=== PATIENT | male | born 1985 | race African-American/Black ===

== ENCOUNTER 2020-01-29 12:22 | Emergency (ER) | payer OTHER ==
[~2020-01-29] VITALS: Ht 190.5 cm; Wt 135.1 kg
[2020-01-29 12:23] VITALS: BP 126/99
[2020-01-29] MEDS ORDERED: CYCL-707 PO (12:32)
[2020-01-29] MEDS ORDERED: NORC1TAB7 PO (13:15)
[2020-01-29] MEDS ORDERED: NORCO, ANEXSIA 5/325MG TABLET (HYDROcodone/ACETAMINOPHEN) PO ONE (13:15)
== END 2020-01-29 13:29 | disposition home or self-care (01) ==
LOC: M ED 12:22
DX: S61.207A Unspecified open wound of left little finger without damage to nail, initial encounter (principal); W25.XXXA Contact with sharp glass, initial encounter; Y92.018 Other place in single-family (private) house as the place of occurrence of the external cause; F17.210 Nicotine dependence, cigarettes, uncomplicated

== ENCOUNTER 2021-01-08 14:40 | Emergency (ER) | payer OTHER ==
[~2021-01-08] VITALS: Ht 188 cm; Wt 131.3 kg
[~2021-01-08 14:40] MED LIST: BACL10TA2 PO; CYCL-707 PO; METH-1165 PO; MOBI4TAB PO; NORC1TAB7 PO
[2021-01-08] MEDS ORDERED: HYDR-4429 (14:51)
[2021-01-08 18:50] LABS: BASO # 0.1 10^3/uL (0.0-0.2); BASO % 0.7 % (0.0-1.0); EOS # 0.3 10^3/uL (0.0-0.5); EOS % 2.8 % (0.0-3.0); HEMATOCRIT 44.7 % (42.0-52.0); HEMOGLOBIN 14.3 g/dl (13.5-17.5); LYMPH # 2.6 10^3/uL (1.5-5.0); LYMPH % 27.9 % (24.0-44.0); MEAN CORPUSCULAR HEMOGLOBIN 27.1 pg (27.0-33.0); MEAN CORPUSCULAR VOLUME 84.7 fl (80.0-96.0); MONO # 0.7 10^3/uL (0.0-0.8); MONO % 7.2 % (2.0-8.0); NEUTROPHILS # 5.6 10^3/uL (1.5-8.5); PLATELET COUNT, AUTOMATED 273 10^3/uL (150-450); RED BLOOD COUNT 5.28 10^6/uL (4.30-6.10); WHITE BLOOD COUNT 9.1 10^3/uL (4.0-10.0)
[2021-01-08 19:22] LABS: ALT/SGPT 48 U/L (12-78); BILIRUBIN,DIRECT < 0.1 MG/DL (0.0-0.2); BILIRUBIN,TOTAL 0.4 MG/DL (0.2-1.0); BLOOD UREA NITROGEN 11 MG/DL (7-18); CALCIUM LEVEL 9.2 MG/DL (8.5-10.1); CARBON DIOXIDE LEVEL 31 MEQ/L (21-32); CHLORIDE LEVEL 106 MEQ/L (98-107); CK-MB VALUE MASS < 1.0 NG/ML (<3.6); CPK CREATINE PHOSPHOKINASE 141 U/L (39-308); CREATININE FOR GFR 0.91 MG/DL (0.70-1.30); GLOMERULAR FILTRATION RATE > 60.0 (>60); GLUCOSE, FASTING 88 MG/DL (70-100); LIPASE 113 U/L (73-393); MB/CK RELATIVE INDEX 0.71 (< OR =4); POTASSIUM SERUM 4.3 MEQ/L (3.5-5.1); SODIUM LEVEL 140 MEQ/L (136-145); TOTAL PROTEIN 7.5 GM/DL (6.4-8.2); TROPONIN I < 0.02 NG/ML (< 0.10)
[2021-01-08] MEDS ORDERED: NS 1,000 ML IV ONE (19:25)
[2021-01-08] MEDS ORDERED: ISOVUE-370 76% 100ML VIAL As Ordered ONE (19:44)
--- NOTE | 2021-01-08 20:47 | REPVR ---
PROCEDURE INFORMATION: Exam: CTA Chest With Contrast Exam date and time: 01/08/2021 7:58 PM Age: 35 years old Clinical indication: Pain; Chest pressure; Additional info: Chest pain-left + d-dimer R/O pe TECHNIQUE: Imaging protocol: Computed tomographic angiography of the chest with contrast. 3D rendering (Not supervised by radiologist): MIP and/or 3D reconstructed images were created by the technologist. Radiation optimization: All CT scans at this facility use at least one of these dose optimization techniques: automated exposure control; mA and/or kV adjustment per patient size (includes targeted exams where dose is matched to clinical indication); or iterative reconstruction. Contrast material: ISOVUE 370; Contrast volume: 75 ml; Contrast route: INTRAVENOUS (IV); COMPARISON: No relevant prior studies available. FINDINGS: Pulmonary arteries: Normal. No pulmonary emboli. Aorta: Unremarkable. No aortic aneurysm. No aortic dissection. Lungs: Unremarkable. No consolidation. No masses. Pleural spaces: Unremarkable. No pneumothorax. No pleural effusion. Heart: Unremarkable. No cardiomegaly. No pericardial effusion. Lymph nodes: Unremarkable. No enlarged lymph nodes. Bones/joints: Unremarkable. No acute fracture. Soft tissues: Unremarkable. IMPRESSION: No acute findings. Electronically signed by: Star Nieves On 01/08/2021 20:47:24 PM
[2021-01-08 21:20] VITALS: BP 138/78
--- NOTE | 2021-01-09 17:35 | ECGEPIP ---
[facility] - ED Test Date: 2021-01-08 Pat Name: CATHERINE CRISTOBAL Department: Room: - Gender: Male Agent [employer] Desk: NUZHAT : 1985 Requested By: Dilia Rausch Order Number: [id number] Reading MD: Dilia Rausch Measurements Intervals [place] Rate: 67 P: 58 IN: 162 QRS: -11 QRSD: 92 T: 10 QT: 390 QTc: 412 Interpretive Statements Normal sinus rhythm with sinus arrhythmia No prior Electronically Signed on 01-09-2021 17:34:54 EDT by Dilia Rausch
== END 2021-01-08 21:22 | disposition home or self-care (01) ==
LOC: M ED 14:40
DX: R09.1 Pleurisy (principal)
CPT/HCPCS: 71275; 80048; 80076; 82550; 82553; 83690; 84484; 85025; 85379; 93005; 96360; 99284; Q9967

== ENCOUNTER 2021-04-01 14:57 | Emergency (ER) | payer OTHER ==
[~2021-04-01] VITALS: Ht 190.5 cm; Wt 141.8 kg
[~2021-04-01 14:57] MED LIST changes: +HYDR-4429
[2021-04-01] MEDS ORDERED: GABA-282 PO (15:27)
[2021-04-01] MEDS ORDERED: NAPR-849 PO (15:27)
[2021-04-01] MEDS ORDERED: TRAZ-252 PO (15:27)
[2021-04-01] MEDS ORDERED: METH-1165 (15:27)
[2021-04-01] MEDS ORDERED: MELO7.5T35 (15:27)
[2021-04-01] MEDS ORDERED: CYCL-707 (15:27)
[2021-04-01 16:20] VITALS: BP 138/95
== END 2021-04-01 16:21 | disposition home or self-care (01) ==
LOC: M ED 14:57
DX: S00.03XA Contusion of scalp, initial encounter (principal); W18.39XA Other fall on same level, initial encounter; Y92.018 Other place in single-family (private) house as the place of occurrence of the external cause

== ENCOUNTER → 2021-07-10 | Outpatient (REF) ==
[~2021-07-10] MED LIST changes: +CYCL-707; +GABA-282 PO; +MELO7.5T35; +METH-1165; +NAPR-849 PO; +TRAZ-252 PO
== END ==
LOC: M PLAIMG 14:05
PROVIDERS: ATTEND Internal Medicine
DX: M54.9 Dorsalgia, unspecified (principal)

== ENCOUNTER → 2021-08-19 | Outpatient (CLI) | payer OTHER | LOC: M PLAIMG 07:10 | PROVIDERS: ATTEND Family Medicine | DX: M54.2 Cervicalgia (principal) ==

== ENCOUNTER → 2021-08-27 | Outpatient (REF) | LOC: M PLALAB 10:25 | PROVIDERS: ATTEND Internal Medicine | DX: Z00.00 Encounter for general adult medical examination without abnormal findings (principal) ==

== ENCOUNTER 2021-09-24 02:13 | Emergency (ER) | payer OTHER ==
[~2021-09-24] VITALS: Ht 188 cm; Wt 146.7 kg
[2021-09-24] MEDS ORDERED: PRAZ1CAP PO (03:15)
[2021-09-24] MEDS ORDERED: EFFE37.5 PO (03:15)
[2021-09-24] MEDS ORDERED: PERC2.5T PO (03:18)
[2021-09-24] MEDS ORDERED: CLONI1TA PO (03:18)
[2021-09-24] MEDS ORDERED: OMEP40CA4 PO (03:18)
[2021-09-24] MEDS ORDERED: GABAPENTIN 300 MG CAP PO ONE (04:00)
[2021-09-24] MEDS ORDERED: METHOCARBAMOL 1,000 MG/10 ML VIAL (J2800) IV ONE (04:00)
[2021-09-24] MEDS ORDERED: KETOROLAC 30 MG/ML 1ML VIAL IV ONE (04:00)
[2021-09-24 05:45] VITALS: BP 113/59
[2021-09-24] MEDS ORDERED: METH-1165 PO (05:55)
[2021-09-24] MEDS ORDERED: NEUR300C PO (05:55)
== END 2021-09-24 06:38 | disposition home or self-care (01) ==
LOC: M ED 02:13
DX: M79.604 Pain in right leg (principal)
CPT/HCPCS: 93971; 96374; 96375; 99284; J1885; J2800